=== PATIENT | male | born 1975 | race Caucasian/White ===

== ENCOUNTER 2021-01-08 13:33 | Emergency (ER) | payer MEDICARE, MEDICAID, SELFPAY ==
[2021-01-08 13:38] VITALS: BMI 39.0
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
--- NOTE | 2021-01-08 13:40 | ECG_ITS ---
Test Reason : dyspnea Blood Pressure : / mmHG Vent. Rate : 072 BPM Atrial Rate : 072 BPM P-R Int : 146 ms QRS Dur : 084 ms QT Int : 400 ms P-R-T Axes : 046 -06 -04 degrees QTc Int : 438 ms Normal sinus rhythm Minimal voltage criteria for LVH, may be normal variant ( R in aVL ) Borderline ECG When compared with ECG of 28-DEC-2018 06:24, Inverted T waves have replaced nonspecific T wave abnormality in Inferior leads Referred By: Gurvinder Izquierdo Electronically Signed By:MAGY DELONG MD
[2021-01-08] MEDS: Haloperidol Lactate 5 MG/ML VIAL 10 MG IM (13:45)
[2021-01-08] MEDS: LORazepam 2 MG/ML VIAL 4 MG IM (13:45)
[2021-01-08] MEDS: 0.9 % Sodium Chloride 1,000 ML 999 ML IVCONT ×2 (15:35)
[2021-01-08 15:59] LABS: MANUAL DIFF FLAG NO
[2021-01-08 16:08] LABS: Basophils Absolute Auto 0.1 X10*3/uL (0.0-0.2); Basophils Percent Auto 0.6 % (0-2); Eosinophils Absolute Auto 0.4 X10*3/uL (0.0-0.4); Eosinophils Percent Auto 3.7 % (0-4); Hematocrit 40.1 % (42.0-52.0); Hemoglobin 13.1 g/dl (14.0-18.0); Imm Gran Abs Auto 0.02 X10*3/uL (0.00-0.03); Imm Gran Pct Auto 0.2 % (0.0-0.4); Lymphocytes Absolute Auto 2.9 X10*3/uL (1.2-4.9); Lymphocytes Percent Auto 30.4 % (20-40); Mean Corpuscular HGB Conc 32.7 g/dl (31.0-36.0); Mean Corpuscular Hemoglobin 29.2 pg (27.0-33.0); Mean Corpuscular Volume 89.5 fL (80.0-98.0); Mean Platelet Volume 9.2 fL (9.4-12.4); Monocytes Absolute Auto 0.9 X10*3/uL (0.1-1.2); Monocytes Percent Auto 9.5 % (2-11); Neutrophils Absolute Auto 5.2 x10*3/uL (2.0-8.3); Neutrophils Percent Auto 55.6 % (45-73); Platelet Count 252 X10*3/uL (160-400); Red Blood Count 4.48 X10*6/uL (4.60-5.80); Red Cell Distribution Width 13.6 % (11.0-16.0); White Blood Count 9.4 X10*3/uL (4.8-10.8)
[2021-01-08 16:24] LABS: Ethanol < 10 mg/dL
[2021-01-08 16:28] LABS: Alanine Aminotransferase 16 U/L (0-40); Albumin Level 4.4 g/dL (3.5-5.0); Alkaline Phosphatase 99 U/L (39-117); Anion Gap 10 (12-20); Aspartate Amino Transferase 30 U/L (5-37); Bilirubin Total 0.4 mg/dL (0.0-1.0); Blood Urea Nitrogen 25 mg/dL (9-16); Calcium 9.6 mg/dL (8.4-10.2); Carbon Dioxide 28 mmol/L (22-29); Chloride 106 mmol/L (96-108); Creatinine Clr Calc Pharmacy 71.4; Estimated Glomerular Filt Rate > 60; Glucose Random 98 mg/dL (60-115); Potassium 4.3 mmol/L (3.3-5.1); Salicylate < 5.0 mg/dL (15-30); Sodium 140 mmol/L (135-145); Total Protein 6.7 g/dL (6.5-8.0); Troponin-I High Sensitivity < 3.5 ng/L (<3.5-35.0)
[2021-01-08 16:40] LABS: Acetaminophen LAB < 1 mcg/mL (<30)
[2021-01-08 16:47] VITALS: BP 121/84; PULSE 70; RESP 20; O2SAT 98
[2021-01-08 19:52] VITALS: BP 113/69; PULSE 62; RESP 18; O2SAT 98
== END 2021-01-08 21:40 | disposition home or self-care (01) ==
PROVIDERS: Emergency Provider Emergency Medicine
DX: M62.82 Rhabdomyolysis (principal); F19.10 Other psychoactive substance abuse, uncomplicated
CPT/HCPCS: 36415; 80053; 80143; 80179; 82077; 82550; 84484; 85025; 93005; 96361; 96372; 96374; 99283; 99284; J2060

== ENCOUNTER 2021-01-31 13:48 | Emergency (ER) | payer MEDICARE, MEDICAID, SELFPAY ==
[2021-01-31 13:53] VITALS: BP 149/80; PULSE 99; O2SAT 99
[2021-01-31 14:06] VITALS: BP 127/70; PULSE 82; RESP 16; O2SAT 96; BMI 34.8
[2021-01-31 14:53] LABS: Amphetamine Screen Urine Not Detected (Not Detect); Barbiturates, Urine Not Detected (Not Detect); Benzodiazepines Screen Urine Not Detected (Not Detect); Cannabinoid Screen Urine POSITIVE (Not Detect); Cocaine Screen Urine Not Detected (Not Detect); Fentanyl, urine Not Detected (Not Detect); Opiate Screen Urine Not Detected (Not Detect); Phencyclidine Screen Urine Not Detected (Not Detect)
--- NOTE | 2021-01-31 14:59 | PC.NURSE ---
patient's brother nadine francois [phone]. he wants us to know that he has filed a section 35 for this patient and is awaiting it's fulfilment. he also states that he is very worried about his brother's mental state/substance use.
--- NOTE | 2021-01-31 15:13 | ED.GENADULT ---
HPI - General Adult General Chief complaint: General Medical <FRANCESCA Salvador - Last Filed: 01/31/21 15:24> Stated complaint: SMOKED CANNABIS, SUSPECTS IT WAS LACED <FRANCESCA Salvador - Last Filed: 01/31/21 15:24> Time Seen by Provider: 01/31/21 15:13 <FRANCESCA Salvador - Last Filed: 01/31/21 15:24> Source: patient <FRANCESCA Salvador - Last Filed: 01/31/21 15:24> Mode of arrival: ambulatory <FRANCESCA Salvador Last Filed: 01/31/21 15:24> Limitations: no limitations <FRANCESCA Salvador Last Filed: 01/31/21 15:24> History of Present Illness HPI narrative: 45-year-old male with a history of drug abuse on Vivitrol, marijuana use who presents to the ER for evaluation of drug use. He lives at home with his brother who was been complaining about his loud and obnoxious behavior. His neighbors have been complaining as well. He admits to smoking marijuana. Patient reports he is here to proved to his brother that he is not using any other drugs besides marijuana. He is here for a urine toxicology. He feels fine and wants to go home. <FRANCESCA Salvador - Last Filed: 01/31/21 15:24> MD complaint: Medical clearance, urine toxicology <FRANCESCA Salvador - Last Filed: 01/31/21 15:24> Severity: mild <FRANCESCA Salvador Last Filed: 01/31/21 15:24> Relieving factors: none <FRANCESCA Salvador Last Filed: 01/31/21 15:24> Exacerbating factors: none <FRANCESCA Salvador Last Filed: 01/31/21 15:24> Associated symptoms: denies other symptoms <FRANCESCA Salvador Last Filed: 01/31/21 15:24> Treatments prior to arrival: none <FRANCESCA Salvador Last Filed: 01/31/21 15:24> Related Data Allergies/adverse reactions: Allergies Allergy/AdvReac Type Severity Reaction Status Date / Time No Known Allergies Allergy Unverified 11/09/19 16:22 <FRANCESCA Salvador - Last Filed: 01/31/21 15:24> Review of Systems Review of Systems: Constitutional: No Fever, No Chills Eyes: No Redness Cardiovascular: No Chest Pain, No SOB Gastrointestinal: No Nausea, No Vomiting Musculoskeletal: No joint pain, No Myalgias Skin: No Skin Lesions, No rash Neuro: No Weakness, No Numbness, No Dizziness, No Headache Psych: No Anxiety/Panic, No Depression <FRANCESCA Salvador - Last Filed: 01/31/21 15:24> [facility] Social History Social History: Social History Advance Directives: No Advance Directives Information Provided: Yes <FRANCESCA Salvador - Last Filed: 01/31/21 15:24> Physical Exam Vital Signs: Vital Signs: Last Vital Signs Pulse 82 01/31/21 14:06 Resp 16 01/31/21 14:06 BP 127/70 01/31/21 14:06 Pulse Ox 96 01/31/21 14:06 BMI result Body Mass Index 34.8 <FRANCESCA Salvador - Last Filed: 01/31/21 15:24> Vital Signs: Last Vital Signs Pulse 82 01/31/21 14:06 Resp 16 01/31/21 14:06 BP 127/70 01/31/21 14:06 Pulse Ox 96 01/31/21 14:06 BMI result Body Mass Index 34.8 <Andrew Amaya MD - Last Filed: 01/31/21 17:33> Appearance: Alert. Oriented X3. Agitated and will yelling that he wants to go home. HEENT: normal inspection Respiratory: No respiratory distress. Speaking in complete sentences Skin: Skin warm and dry. Normal skin color. Normal skin turgor. No rashes. Extremities: Atraumatic, normal inspection, normal range of motion. Neuro: Oriented X 3. No motor deficit. No sensory deficit. Ambulates with steady gait <FRANCESCA Salvador - Last Filed: 01/31/21 15:24> Course Course Course Narrative: 45-year-old male presenting for medical clearance. He is here offering a urine toxicology for his brother so that he can stay living in his house. His mother says he cannot stay in his house if he is using other drugs. He is on Vivitrol at baseline. His urine toxicology today is positive for marijuana only. Results were provided to the patient. At this time with stable for discharge home. <FRANCESCA Salvador - Last Filed: 01/31/21 15:24> Medical Decision Making Lab Data Labs: Lab Results 01/31/21 Range/Units 14:26 Urine Opiates Screen Not Detected (Not Detect) Urine Fentanyl Screen Not Detected (Not Detect) Ur Barbiturates Screen Not Detected (Not Detect) Ur Phencyclidine Scrn Not Detected (Not Detect) Ur Amphetamines Screen Not Detected (Not Detect) U Benzodiazepines Scrn Not Detected (Not Detect) Urine Cocaine Screen Not Detected (Not Detect) U Marijuana (THC) Screen POSITIVE H (Not Detect) <FRANCESCA Salvador - Last Filed: 01/31/21 15:24> Lab Results 01/31/21 Range/Units 14:26 Urine Opiates Screen Not Detected (Not Detect) Urine Fentanyl Screen Not Detected (Not Detect) Ur Barbiturates Screen Not Detected (Not Detect) Ur Phencyclidine Scrn Not Detected (Not Detect) Ur Amphetamines Screen Not Detected (Not Detect) U Benzodiazepines Scrn Not Detected (Not Detect) Urine Cocaine Screen Not Detected (Not Detect) U Marijuana (THC) Screen POSITIVE H (Not Detect) <Andrew Amaya MD - Last Filed: 01/31/21 17:33> Discharge Plan Discharge Clinical Impression: Marijuana use <FRANCESCA Salvador - Last Filed: 01/31/21 15:24> Patient Disposition: Home, Self-Care <FRANCESCA Salvador - Last Filed: 01/31/21 15:24> Instructions: Cannabis Abuse (ED) <FRANCESCA Salvador - Last Filed: 01/31/21 15:24> Additional Instructions: Your urine toxicology was positive for cannabinoids only. <FRANCESCA Salvador - Last Filed: 01/31/21 15:24> Interventions: ED Discharge Assessment Last Done: 01/31/21 15:24 <FRANCESCA Salvador Last Filed: 01/31/21 15:24> Discharge Date/Time: 01/31/21 15:25 <FRANCESCA Salvador - Last Filed: 01/31/21 15:24>
== END 2021-01-31 15:25 | disposition home or self-care (01) ==
LOC: HO.ED 15:17
PROVIDERS: Emergency Provider Emergency Medicine
DX: F12.10 Cannabis abuse, uncomplicated (principal); Z79.899 Other long term (current) drug therapy
CPT/HCPCS: 80307; 99284

== ENCOUNTER 2021-02-25 20:05 | Emergency (ER) | payer MEDICARE, MEDICAID, SELFPAY ==
[2021-02-25 20:15] VITALS: BP 150/80; PULSE 75; O2SAT 95
--- NOTE | 2021-02-25 20:25 | ED_ITS ---
HPI - Altered Mental Status General Stated Complaint: crisis Time Seen by Provider: 02/25/21 20:24 Source: patient and EMS Mode of arrival: EMS Limitations: no limitations History of Present Illness HPI narrative: 45-year-old male who was brought to emergency department for evaluation of altered mental status. The patient told me that he was upset that he had lost his phone and he was in the street yelling. Someone called the police on the police felt that the patient had been doing drugs and offered him transport to the hospital versus protective custody and a holding cell. The patient states that he does smoke marijuana and heroin daily but did not use any this evening. He states that he last used at 9:00 a.m. this morning. He states that he usually smokes marijuana mixed with heroin 2 to 3 times a day. He states that recently he was in a [address] for 56 days and got out on December 03, 2020. He states that he stayed sober for approximately 1 month but then lost his housing and since then has been using drugs again. He states that occasionally he smokes crack cocaine as well. He does not want to get into a detox program today. He does not want to talk to 1 of our recovery operator is. He denies being suicidal or homicidal. He does not want any testing today in the emergency department. He is oriented to person and place and answers all questions appropriately therefore he is competent to refuse care. Related Data Allergies Allergy/AdvReac Type Severity Reaction Status Date / Time No Known Allergies Allergy Unverified 11/09/19 16:22 Review of Systems Review of Systems: Yes all other systems are reviewed and are negative [facility] Past Medical History [facility] Narrative: Past medical history: Polysubstance abuse. Social history: He states that he is homeless but he is going to get housing today. He does smoke cigarettes. He denies alcohol use. He smokes marijuana mixed with heroin. He smokes crack cocaine. Social History Social History Advance Directives: No Advance Directives Information Provided: No Physical Exam Const: General: cooperative and no acute distress Orientation/consciousness: oriented to person and oriented to place Limitations: no limitations HENMT: Head: Yes normal to inspection, Yes normocephalic and Yes atraumatic Ears: external ears normal General nose exam: Normal external nose present Face and sinus: Yes normal facial exam Mouth: Normal oral and palatal mucosa present Throat: Yes posterior oropharynx normal Eyes: General: appearance normal, both eyes and all related structures Pupils: Equal, round and reactive pupils present Neck: Neck: Yes normal visual inspection, Yes no lymphadenopathy, Yes trachea midline and Yes supple Chest: Chest palpation & inspection: normal inspection of the chest and normal palpation of entire chest wall Resp: Effort & Inspection: normal respiratory effort and able to speak in complete sentences Auscultation: clear to auscultation bilaterally Cardio: Rate: regular rate Rhythm: regular rhythm Heart sounds: S1 normal heart sound present, S2 normal heart sound present and no murmurs GI: Inspection: Yes normal to inspection Palpation (GI): Soft to palpation, nontender and no guarding Auscultation: normal bowel sounds : General: Yes no CVA tenderness Back/Spine/Pelvis: Back: no CVA tenderness Skin: Other: Small, nonbleeding skin abrasion to his left 1st webspace between his thumb and index finger. General skin exam: no rashes or lesions noted Neuro: General: oriented to person and oriented to place Cranial nerves: Yes CN's II-XII intact bilaterally and Yes Equal, round and reactive pupils present Cognition (Neuro): normal cognition Motor exam (neuro): 5/5 motor strength present throughout Extrem: General: Yes normal to inspection Psych: Appearance: grossly normal Speech and movement: Normal speech and movement present Affect: normal affect Attitude: cooperative Thought process: Normal thought process present Thought content: Normal thought content present Course Course Course Narrative: 45-year-old male who was sent to emergency department by police for evaluation of altered mental status. The patient apparently was yelling in the street but he told me that he was upset about losing his phone and he was not intoxicated. He does admit to using marijuana, heroin and crack cocaine but has not used since early this morning. Denies alcohol use. At the time my evaluation the patient is oriented to person and place, he answers all questions appropriately, he denies being suicidal or homicidal. Therefore, I believe that the patient is competent to refuse care. I did offer him counseling from our care team and from our recovery operator however he refused this at this time and states that he is not interested in getting into detox and he is going to continue to use drugs. I offered to send him home with intranasal Narcan however he states that he has to have these at home and he does not want 1 at this time. The patient will be discharged home. Discharge Plan Discharge Clinical Impression: Polysubstance (excluding opioids) dependence, daily use, Heroin use, Marijuana use, Cocaine use, Abrasion Patient Disposition: Home, Self-Care Instructions: Narcotic Use Disorder (ED) Additional Instructions: At this time, you do not appear to be intoxicated from alcohol or any other drugs. I offered to have our recovery operator and our care team crisis counselor help treat you for your drug use however you refused. I also offered to give you intranasal Narcan in order to help you safely use narcotics in the future however you state that you have 2 doses of this medication at home and do not want 1 to go home with at this time. It is very dangerous to use narcotics since most of the narcotics on the street are fentanyl and even smoking a small dose of fentanyl can cause you to stop breathing and . If you change your mind and want to get help with your drug use, please return to the emergency department and we can have our recovery operator and care team counselor see you.
[2021-02-25 20:46] VITALS: BP 126/68; PULSE 76; RESP 18; TEMP 36.8; O2SAT 98; BMI 28.7
[2021-02-25] MEDS: Bacitracin Oint 0.9 GM PACKET 1 APPL TOPICAL (20:49)
--- NOTE | 2021-02-25 21:09 | PC.NURSE ---
pt. ambulatory upon discharge. Alert and oriented and following commands. Was complaining about bilateral big toe pain. Pts toes are white but with positive sensation and cms.
== END 2021-02-25 21:11 | disposition home or self-care (01) ==
PROVIDERS: Emergency Provider Emergency Medicine Emergency Medical Services
DX: F19.20 Other psychoactive substance dependence, uncomplicated (principal); F14.20 Cocaine dependence, uncomplicated; F12.20 Cannabis dependence, uncomplicated; F11.20 Opioid dependence, uncomplicated; S60.512A Abrasion of left hand, initial encounter; X58.XXXA Exposure to other specified factors, initial encounter; Y93.9 Activity, unspecified; Y92.9 Unspecified place or not applicable; Y99.9 Unspecified external cause status
CPT/HCPCS: 99283

== ENCOUNTER 2023-04-25 16:31 | Emergency (ER) | payer MEDICARE, MEDICAID, SELFPAY ==
[2023-04-25 16:45] VITALS: BP 132/87; BP 140/92; PULSE 87; PULSE 88; RESP 16; TEMP 36.5; O2SAT 95; O2SAT 98; BMI 35.8
--- NOTE | 2023-04-25 17:02 | ED.GENADULT ---
HPI - General Adult General Chief complaint: ETOH/Substance Use Stated complaint: PT TOOK SOMETHING PER PD. DILATED PUPILS,SWEATY Time Seen by Provider: 04/25/23 16:39 Source: patient Mode of arrival: ambulatory Limitations: no limitations History of Present Illness HPI narrative: 47-year-old male with history of substance abuse on methadone presents to ED for acting bizzare after smoking weed. Patient took his methadone today. patient states his brother bought weed from some source, but does not know where. patient states presently he wants to eat food. patient denies any homicidla/suicidal ideation. presently patient is not acting irrationaly. Related Data Allergies Allergy/AdvReac Type Severity Reaction Status Date / Time No Known Allergies Allergy Unverified 11/09/19 16:22 Review of Systems Review of Systems: smoked weed. acting bizarre. Yes all other systems are reviewed and are negative [facility] Social History Social History Smoked in Last 30 Days: Yes Use of substances other than those prescribed or required for medical reasons: Yes Substance Use Type: Marijuana Substance Use Frequency: Daily Last Used Substance: Just Prior to Admission Any prior treatment program specific to substance use: No Advance Directives: No Advance Directives Information Provided: No Physical Exam ED Vital Signs: Vital Signs - 24 hr 04/25/23 16:45 Temperature 97.7 F Pulse Rate 87 Respiratory Rate 16 Blood Pressure 132/87 Pulse Oximetry 95 Oxygen Delivery Method Room Air BMI result Body Mass Index 35.8 Const Other: patient is not acting bizzare. patient falling asleep and than wakes up to talk. General: comfortable, no acute distress, well developed and alert Orientation/consciousness: oriented to person, oriented to place, oriented to time and patient oriented x3 HENMT Head: Yes normal to inspection, Yes No palpable skull fracture present, Yes normocephalic, Yes atraumatic, No abrasion, No Acrocyanosis present, No Chung's sign, No contusion, No cranial bruits, No hematoma, No laceration, No occipital foramen tenderness, No palpable skull fracture, No raccoon eyes, No scalp lesion, No scalp tenderness and No Temporal artery tenderness present Ears: hearing grossly normal bilaterally, external ears normal, TM's normal bilaterally, TM normal on the right, TM normal on the left, EAC's normal, mastoids normal and no periauricular adenopathy Eyes Other: pupils are constricted. Neck Neck: Yes normal visual inspection, Yes full ROM, Yes no lymphadenopathy, Yes no meningeal signs, Yes trachea midline, Yes supple, No anterior neck swelling and No tender Chest Chest palpation & inspection: normal inspection of the chest and normal palpation of entire chest wall Resp Effort & Inspection: normal respiratory effort and able to speak in complete sentences Auscultation: clear to auscultation bilaterally Cardio Jugular venous distension: no JVD Heart sounds: S1 normal heart sound present and S2 normal heart sound present GI Inspection: Yes normal to inspection Palpation (GI): Soft to palpation, not firm, nontender, no guarding and not rigid General: No CVA tenderness and Yes no CVA tenderness Back/Spine/Pelvis Back: no CVA tenderness, No CVA tenderness and No back tenderness Skin General skin exam: no rashes or lesions noted and elasticity normal Neuro Other: PATIENT FALLING ASLEEP AND THAN WAKING UP TO TALK LIKE HE IS ON AN OPOIDS. General: oriented to person, oriented to place, oriented to time, patient oriented x3, gait normal, tone normal, moves all extremities, Normal light touch and pain sensation, no meningeal signs, no focal motor deficits, CN's II-XI intact bilaterally and normal sensation to monofilament Extrem General: Yes normal to inspection, Yes full ROM and Yes capillary refill normal Psych Appearance: grossly normal, well kempt and not disheveled Medical Decision Making Medical Decision Making MDM Narrative: 47-YEAR-OLD MALE PRESENTS TO ED FOR ACTING BIZARRE SMOKING WEED. EMS DENIES ANY TRAUMA. PATIENT TOOK HIS METHADONE TODAY. WHOLE-BODY EVALUATED NEGATIVE FOR SIGNS OF TRAUMA. PUPILS CONSTRICTED. PATIENT IS FALLING ASLEEP AND THEN TALKING. CLINICAL PRESENTATION MOST LIKELY OPIOID or PCP. PATIENT IS RETCHING WAS OFFERED ZOFRAN BUT REFUSED. PATIENT DOES NOT ANY medical intervention WANTS FOOD. VITAL SIGNS ARE STABLE. WE WILL WATCH AND RE-EVALUATE PATIENT. stanley ORDERED. 5:36PM: PATIENT IS ALERT ORIENTED X3. PATIENT DOES want ANY MEDICAL INTERVENTION. PATIENT REQUESTING TO DRINK DEE FRANSISCO. VITAL SIGN MONITOR STABLE. PATIENT WILL BE CONTINUOUSLY MONITORED. Patient is eating food. 6:13pm: Patient left the ED without my knowldge. Went outside and saw and spoke to patient. patient was A0x3 and did not want to return to the ED. patient explained risk of and worsening symptoms but still does not want to return to the ED. he states he felt better and did not want any medical intervenion. Patient did not return to the ED> Differential Diagnosis Differential Diagnoses: The differential diagnosis associated with the presentation includes (substance abuse, laced weed) Admission/Observation Consideration of admission/observation: Escalation of care including admission/observation considered Independent Historian Clinical information obtained from an independent historian. History obtained from or confirmed by: EMS and Other (Nurse and patient) External Record Review External record reviewed: Other (prior visits) Social Determinants Patient?s care significantly limited by Social Determinants of Health including: Other Social Determinant of Health (Subtance abuse) Discharge Plan Discharge Clinical Impression: Polysubstance abuse Patient Disposition: Left Against Medical Advice Discharge Date/Time: 04/25/23 18:20
--- NOTE | 2023-04-25 17:23 | PC.NURSE ---
patient refusing zofran even though dry heaving. PA aware. pupils and dilated and constricted. will monitor vitals
== END 2023-04-25 18:20 | disposition left against medical advice (07) ==
PROVIDERS: Emergency Provider Internal Medicine
DX: F12.121 Cannabis abuse with intoxication delirium (principal); F15.121 Other stimulant abuse with intoxication delirium
CPT/HCPCS: 99281; 99283

== ENCOUNTER 2023-10-04 16:23 | Emergency (ER) | payer MEDICARE, MEDICAID, SELFPAY ==
[2023-10-04 16:35] VITALS: BP 156/62; PULSE 74; O2SAT 95
--- NOTE | 2023-10-04 16:36 | PC.NURSE ---
pt was on EMS gerney waiting for a bed in the ED. Was collared and removed it. Became impatient, was exit seeking, made it to ems door and both wiating room doors. was ambulatory with brisk gait, stead on feet, skin pwd. no abrasions noted on scalp. EMS state he fell from stating. pt states he had beens smoking pot. No blood thinnger. no LOC. signed AMA form
--- NOTE | 2023-10-04 16:55 | PC.NURSE ---
pt just walked back through the ed with a bag of food from the caf. stated to transporter that he's going to assist a friend in wr. strong steady gait. previously denied SI/HI
== END 2023-10-04 16:57 | disposition left against medical advice (07) ==
PROVIDERS: Emergency Provider Emergency Medicine
DX: R51.9 Headache, unspecified (principal)

== ENCOUNTER 2024-04-13 09:21 | Outpatient (REF) | payer MEDICARE, MEDICAID, SELFPAY ==
[2024-04-13 09:50] LABS: MANUAL DIFF FLAG NO
--- OUTSIDE RECORDS SUMMARY | 2024-04-13 10:05 | XMS_ITS | Clinical Summary ---
Author Organization [facility] Address [address] [place] [address] Care Team Providers Care Addiction Specialist Name Role Phone Gillian Martínez PAPER STEAMER Primary Care Provider [phone] Source Comments PLEASE NOTE, if this patient is a minor, it may be UNLAWFUL to discuss sensitive information that is contained in these records (such as FAMILY PLANNING, MENTAL HEALTH or SUBSTANCE ABUSE) with the minor patient's parent or other person without the patient's specific authorization.[facility] Allergies No known active allergies Medications QUEtiapine (SEROQUEL) 300 mg tabletIndicatio ns:Major depressive disorder in full remission, unspecified whether recurrent (HCC-CMS) Take 300 mg by mouth nightly at bedtime 9 Active QUEtiapine (SEROQUEL) 100 mg tabletIndicatio ns:Major depressive disorder in full remission, unspecified whether recurrent (HCC-CMS) Take 100 mg by mouth 2 (two) times daily 9 Active methocarbamoL (ROBAXIN) 500 mg tabletIndicatio ns:Cervical paraspinal muscle spasm Take 1 Tablet by mouth 3 (three) times daily 15 Tablet 2 Active ibuprofen 400 mg tabletIndicatio ns:Cervical paraspinal muscle spasm Take 1 Tablet by mouth 3 (three) times daily as needed for pain 30 Tablet 2 Active mirtazapine 7.5 mg tab TAKE 1 TABLET BY MOUTH EVERY DAY AT BEDTIME NEEDED 2 Active hydrOXYzine pamoate (VISTARIL) 50 mg capsule 3 Active QUEtiapine (SEROQUEL) 200 mg tablet 3 Active valACYclovir (VALTREX) 1 gram tabletIndicatio ns:HSV infection TAKE 1 TABLET BY MOUTH DAILY BLUE COLORED ONLY 20 Tablet 1 5 Active valACYclovir (VALTREX) 1 gram tabletIndicatio ns:HSV infection TAKE 1 TABLET BY MOUTH DAILY BLUE COLORED ONLY 20 Tablet 1 4 025 Discontinued Active Problems Problem Noted Date Diagnosed Date Severe episode of recurrent major depressive disorder, without psychotic features ([facility]) 07/09/2021 Opioid abuse ([facility]) 02/23/2019 Overview (07/09/2021): Is doing methadone for opioids.Gianfrancoanibal Chronic hepatitis C without hepatic coma (HCC-CM S) 01/22/2018 Overview (04/24/2018): Genotype 1b 03/03/18 - Evaluated by ID at [facility] [place]. Plan: Abdominal U/S, Will submit for mavyret x 8 wks. F/U 2 mos. History of incarceration 01/20/2018 Overview (01/23/2018): Incarcerated for 5 years [id number] and several times before that HSV infection 01/20/2018 Resolved Problems Problem Noted Date Diagnosed Date Resolved Date Numbness and tingling in both hands 02/23/2019 07/09/2021 Chest pain - normal stress ECHO 09/26/18 12/17/2018 07/09/2021 Overview (12/17/2018): 09/26/18 - Stress ECHO: normal resting LVF. LVEF: 60-65%, w/ no region wall abnormalities. No exercise induced ischemia. Subclinical hyperthyroidism 08/30/2018 07/29/2021 Subclinical hypothyroidism 01/22/2018 0 08/30/2018 Prediabetes 01/22/2018 07/29/2021 Immunizations Name Administration Dates Next Due Flu, Cell Culture based, Mul ti Dose, 6m+, Flucelvax 12/24/2016 Flu, Preservative Free 01/19/2023,02/23/2019, INFLUENZA, SEASONAL, INJECTABLE 12/18/19 16,12/16/2012,01/29/2012,03/06 Influenza (FLUAD), Trivalent , Adjuvanted 12/11/2014 MMR (MMR II/Priorix) 12/18/2011 PNEUMOCOCCAL CONJUGATE PCV 2 0 (Prevnar) 01/19/2023 PNEUMOCOCCAL POLYSACCHARIDE PPV23 07/09/2021 TDAP 07/09/2021,03/06/2011 Td(adult),2 Lf tetanus toxoid,preservative free 07/03/2014 Family History Medical History Relation Name Comments Asthma Mother Relation Name Status Comments Mother Alive Social History Tobacco Use Types Packs/Day Years Used Date Smoking Tobacco: Every Day Cigarettes 0.5 29.9 Started: 1989; Last attempted to quit: 01/05/2019 Smokeless Tobacco: Never Tobacco Cessation:Ready to Q uit: Not Asked; Counseling Given: Not Answered Comments:10 a day Alcohol Use Standard Drinks/Week Comments No 0 (1 standard drink = 0.6 oz pur e alcohol) Social Connections Answer Date Recorded Connectedness 0 01/19/2023 Financial Resource Strain Answer Date R ecorded Financial Resource Strain 0 2022 Stress Answer Date Recorded Stress 0 01/19/2023 Physical Activity Answer Date Recorded Physical Activity 0 10/17/2018 Food Insecurity Answer Date Recorded Food 0 01/19/2023 Transportation Needs Answer Date Record ed Transportation 0 01/19/2023 Housing Stability Answer Date Recorded Housing 0 01/19/2023 Safety and Environment Answer Date Soham rded Safety 0 01/19/2023 Utilities Answer Date Recorded Utilities 0 01/19/2023 Employment Answer Date Recorded Employment 0 10/17/2018 Sex and Gender Information Value Date Recorded Sex Assigned at Male 01/20/2018 11:07 AM PST Legal Sex Male 7:02 AM PDT Gender Identity Male 01/20/2018 11:07 AM PST Sexual Orientation Straight 01/20/2018 11 :07 AM PST Occupation Industry Job Start Date Job End Date [employer] Not on file Not on file Not on file Last Filed Vital Signs Vital Sign Reading Time Taken Comments Blood Pressure 120/82 01/19/2023 10:56 AM EST Pulse 75 01/19/2023 10:56 AM EST Temperature 36.4 ??C (97.5 ??F) 01/19/2023 10:[address] Respiratory Rate 20 01/19/2023 10:56 AM EST Oxygen Saturation 97% 01/19/2023 10:56 AM EST Inhaled Oxygen Concentration - - Weight 97 kg (213 lb 12.8 oz) 01/19/2023 10:56 A M EST Height 165.1 cm (5' 5 ) 01/19/2023 10:56 AM EST Body Mass Index 35.58 01/19/2023 10:56 AM EST Plan of Treatment Health Maintenance Due Date Last Done Comments Lipid Screening 07/09/2022 07/09/2021, 02/23/2019 Tobacco Screening 07/09/2022 07/09/2021 CT Colonography 2022 Colonoscopy 2022 Colorectal Cancer Screening 2022 FIT/gFOBT 2022 Fecal DNA 2022 Flexible Sigmoidoscopy 2022 Depression Monitoring 04/21/2023 01/19/2023 , 09/16/2022, 07/09/2021 Tobacco Cessation Counseling (#1) 07/17/2023 022 [id number] ( season) 2023 04/04/2021, 08/22/2020, 08/01/2020 Imm-Influenza (#1) 2023 01/19/2023, 0 02/23/2019, 01/20/2018, Additional history exists Hypertension Screening (#1) 01/19/2024 Diabetes Screening 01/20/2024 01/19/2023, 1 03/21/2022, 07/09/2021, Additional history exists Medicare Annual Wellness Visit 01/20/2024 01/19/2023 Alcohol and Drug Screen 02/23/2024 09/17/19 23, 07/09/2021, 04/04/2018, Additional history exists Imm-DTaP/Tdap/Td (4 - Td or Tdap) 07/10/2031 07/09/2021, 07/03/2014, 03/06/2011 Imm-Pneumococcal Completed 01/19/2023, 07/09/2021 HIV Screening Completed 09/09/2023, 01/19/2023 Imm-Hepatitis A Discontinued Imm-Hepatitis B Discontinued Procedures Procedure Name Priority Date/Time Associated Diagnosis Comments HIV 1/2 AG & AB W/RFLX (4TH GEN) Routine 09/09/2023 11:08 AM EDT Penile discharge COMPREHENSIVE METABOLIC PANEL Routine 01/19/2023 11:52 AM EST Chronic hepatitis C without hepatic coma (HCC-CMS) LIPIDS W RFLX TO DIRECT LDL Routine 07/09/2021 10:16 AM EDT Prediabetes Subclinical hyperthyroidism from Last 3 Months or Most Recently Relevant to Health Maintenance Results * HIV 1/2 AG & AB W/RFLX (4TH GEN) (09/09/2023 11:08 AM EDT) HIV AG/AB, 4TH GEN NON-REAC TIVE NON-REAC TIVE [facility] [facility] Comment: HIV-1 antigen and HIV-1/HIV-2 antibodies were not detected. There is no laboratory evidence of HIV infection. PLEASE NOTE: This information has been disclosed to you from records whose confidentiality may be protected by state law. ??If your state requires such protection, then the state law prohibits you from making any further disclosure of the information without the specific written consent of the person to whom it pertains, or as otherwise permitted by law. A general authorization for the release of medical or other information is NOT sufficient for this purpose. ?? For additional information please refer to http://education.[employer]/faq/NMX395 (This link is being provided for informational/ educational purposes only.) The performance of this assay has not been clinically validated in patients less than 2 years old. Blood Blood / Unknown 09/09/2023 1 1:08 AM EDT 09/09/2023 11:08 AM EDT Narrative [facility] - 09/10/2023 5:54 PM EDT FASTING:NO Mel Fuentes SENIOR CLERK-C LAB - BLOOD DRAW Final Re sult [facility] [address] [place] [id number], [facility] [address] [address] * (ABNORMAL) COMPREHENSIVE METABOLIC PANEL (01/19/2023 11:52 AM EST) Pathologist [facility] GLUCOSE 63(L) 65 - 139 mg/dL [facility] Comment: ?Non-fasting reference interval UREA NITROGEN (BUN) 21 7 - 25 mg/dL [facility] CREATININE (blood) 0.79 0.60 - 1.29 mg/dL [facility] EGFR 112 > OR = 60 mL/min/1. 73m2 [facility] BUN/CREATININE RATIO SEE NOTE: [facility] Comment: ?? Not Reported: BUN and Creatinine are within ?? reference range. ? SODIUM 144 135 - 146 mmol/L [facility] POTASSIUM 4.0 3.5 - 5.3 mmol/L [facility] CHLORIDE 107 98 - 110 mmol/L [facility] CARBON DIOXIDE 29 20 - 32 mmol/L [facility] CALCIUM 9.4 8.6 - 10.3 mg/dL [facility] PROTEIN, TOTAL 6.8 6.1 - 8.1 g/dL [facility] ALBUMIN 4.5 3.6 - 5.1 g/dL [facility] GLOBULIN 2.3 1.9 - 3.7 g/dL (calc) [facility] ALBUMIN/GLOBULI N RATIO 2.0 1.0 - 2.5 (calc) [facility] BILIRUBIN, TOTAL 0.4 0.2 - 1.2 mg/dL [facility] ALKALINE PHOSPHATASE 74 36 - 130 U/L [facility] AST 15 10 - 40 U/L [facility] ALT 15 9 - 46 U/L [facility] Blood Blood / Unknown 01/19/2023 1 1:52 AM EST 01/19/2023 11:52 AM EST Narrative [facility] - 01/22/2023 9:20 PM EST FASTING:NO COLLECTION KIT GIVEN TO PATIENT. PATIENT ADVISED TO RETURN. [facility] [place] LAB - BLOOD DRAW Edited Result - Final [facility] [address] [address], [facility] [address] [place] [address] * LIPIDS W RFLX TO DIRECT LDL (07/09/2021 10:16 AM EDT) LDL-CHOLESTEROL 97 99 mg/dL (calc) [facility] Comment: Reference range: <100 Desirable range <100 mg/dL for primary prevention; ?? <70 mg/dL for patients with CHD or diabetic patients with > or = 2 CHD risk factors. LDL-C is now calculated using the Rafa calculation, which is a validated novel method providing better accuracy than the Friedewald equation in the estimation of LDL-C. Harjinder SS et al. ASHLYN. 2013;310(19): 5204-9797 (http://education.[employer]/faq/RCL963) CHOL/HDLC RATIO 3.6 <5.0 (calc) [facility] NON-HDL CHOLESTEROL 114 <130 mg/dL (calc) [facility] Comment: For patients with diabetes plus 1 major ASCVD risk factor, treating to a non-HDL-C goal of <100 mg/dL (LDL-C of <70 mg/dL) is considered a therapeutic option. CHOLESTEROL, TOTAL 158 <200 mg/dL [facility] HDL CHOLESTEROL 44 > OR = 40 mg/dL [facility] TRIGLYCERIDES 83 <150 mg/dL [facility] Blood Blood / Unknown 07/09/2021 1 0:16 AM EDT 07/09/2021 10:17 AM EDT Narrative [facility] - 07/16/2021 11:20 AM EDT FASTING:YES Melida Shah SENIOR CLERK-C LAB - BLOOD DRAW Final Resul t [facility] [address] [address], [facility] [address] [address] from Last 3 Months or Most Recently Relevant to Health Maintenance Insurance [place] MEDICAID Member Subscriber Plan / Payer (Ef fective 2017-Present) Name:David Ceja Relation to Subscriber:Self Name:David Ceja Payer ID:[id number] Group ID:Not on file Type:Medicaid Address: [address] [place] [id number] MEDICARE - [place] Care Teams Addiction Specialist Relationship Specialty Start Date End Date Gillian Martínez NP [address] [place] [address] PCP - General Internal Medicine 03/18/23
--- OUTSIDE RECORDS SUMMARY | 2024-04-13 10:05 | XMS_ITS | Continuity of Care Document ---
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 Name Role Phone Unavailable Unavailable Unavailable Allergies, Adverse Reactions, Alerts Substance Reaction Status Criticality No Known allergies Medications Medication Instructions Dosage Effective Dates (start - stop) Status Comments Seroquel 300 mg Tab take 2 tablet (600MG ) by oral route every day 600 MG - Active Valtrex 500 mg Tab 1po bid prn herpes flare x 5days - Active Wellbutrin XL 300 mg 24 hr Tab take 1 tablet (300MG) by oral route every day 300 MG - Active Vitamin D 50,000 unit Cap 1 tab weekly x 8 weeks - Active ibuprofen 400 mg Tab 1 THREE TIMES DAILY WITH MEALS DIRECTED NEEDED - Active bacitracin 500 unit/g Topical Packet apply BID to affected area for 14 days - Active Keflex 500 mg Cap 1 Four Times A Day P O for 10 days - Active Procedures Procedure Date 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 PSYTX, OFF, 45-50 MIN MEDICATION MANAGEMENT MEDICATION MANAGEMENT Advance Directives Directive Yes / No Effective Date File Name No Information Encounters Encounter Description Practice Location Reason(s) For Visit Diagnoses Date Provider Providers Copied on Encounter [facility], [address] [place] [address],[address], [place], [place], [id number], [place] tel:[phone] [facility] No Information 2 No Information [facility], [address], [place], [place], [id number], [place] tel:[phone] [facility] No Information 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 . [facility], [address], [place], [place], [id number], [place] tel:[phone] [facility] behavior disorder (chief complaint) depression (chief complaint) No Information 2 No Information [facility], [address], [place], [place], [id number], [place] tel:[phone] [facility] No Information 2 No Information [facility], [address], [place], [place], [id number], [place] tel:[phone] [facility] No Information 2 No Information [facility], [address], [place], [place], [id number], [place] tel:[phone] [facility] behavior disorder (chief complaint) Major depressive affective disorder, recurrent episode, severe degree, specified as with psychotic behavior 2 No Information [facility], [address], [place], [place], [id number], [place] tel:[phone] [facility] behavior disorder (chief complaint) Major depressive affective disorder, recurrent episode, severe degree, specified as with psychotic behavior 2 No Information [facility], [address], [place], [place], [id number], [place] tel:[phone] [facility] Opioid type dependence, continuous use 2 No Information [facility], [address], [place], [place], [id number], [place] tel:[phone] [facility] Major depressive affective disorder, recurrent episode, severe degree, specified as with psychotic behaviorPostt raumatic stress disorder 2 No Information [facility], [address], [place], [place], [id number], [place] tel:[phone] [facility] Unspecified drug dependence, unspecified useCellulitis and abscess of upper arm and forearm 2 No Information [facility], [address] [facility],[address], [place], [place], [id number], [place] tel:[phone] Converted Locations No Information 2 No Information [facility], [address] [facility],[address], [place], [place], [id number], [place] tel:[phone] [facility] Unspecified vitamin d deficiency 2 No Information [facility], [address] [facility], [place], [place], [id number], [place] tel:[phone] [facility] Other disorders of muscle, ligament, and fascia 2 No Information [facility], [address] [facility] [facility] [address], [place], [place], [id number], [place] tel:[phone] Converted Locations No Information 2 No Information [facility], [address], [place], [place], [id number], [place] tel:[phone] [facility] NEED FOR PROPHYLACTIC VACCINATION AND INOCULATION, INFLUENZANEED FOR PROPHYLACTIC VACCINATION WITH COMBINED DIPHTHERIA-TE TANUS-PERTUSS IS (DTP) (DTAP) VACCINERoutin e general medical examination at a health care facility 2 No Information [facility], [address] [facility],[address], [place], [place], [id number], [place] tel:[phone] [facility] Cellulitis and abscess of foot, except toes 1 Mendez Reese. [address] [place], [place], [id number]. tel:[phone] [facility], [address], [place], [place], [id number], tel:[phone] [facility] Other general medical examination for administrativ e purposes 1 Z-Converted Provider. . [facility], [address], [place], [place], [id number], [place] tel:[phone] Converted Locations No Information 1 Mendez Reese. [address], [place], [id number]. tel:[phone] [facility], [address], [place], [place], [id number], tel:[phone] [facility] Depressive disorder, not elsewhere classified 1 No Information Family History Family Member Type Diagnosis Age At Onset FH - ILLNESSES (GENE Problem (finding) no cancer FH - ILLNESSES (GENE Problem (finding) no heart diseas e FH - MOTHER (DDMS) Problem (finding) hypertension FH - ILLNESSES (GENE Problem (finding) no hypercholest erolemia FH - ILLNESSES (GENE Problem (finding) no hypertension FH - ILLNESSES (GENE Problem (finding) no diabetes FH - MOTHER (DDMS) Problem (finding) asthma Immunizations Vaccine Date Status Comments INFLUENZA VACCINE AGE 3 AND ABOVE administered Source: New Immuniza tion Record TDAP administered Source: New Imm unization Record Payers Payer name Insurance type Covered republican ID Authoriza tion(s) No Information Social History Type Description Quantity Date Captured Comments Sex Male Smoking Status No Information Chief Complaint And Reason For Visit No Information Reason For Referral Reason For Referral No Information Plan Of Treatment Date Type Action Status Goal Unhealthy drug use screening . Due on due Goal Document SOGI Information. D ue on due Goal Lipid Panel. Due on 012 due Goal Hemoglobin A1C. Due on due Goal ELECTROCARDIOGRAM, COMPLETE. Due on due Goal APE. Due on due Goal Influenza vaccine. Due on due Goal Tdap. Due on due History Of Present Illness Encounter Date Complaint History Of Prese nt Illness No Information Functional Status Date Functional Assessmen t No Information Instructions Date Instruction Additional Infor mation No Information Assessments Type Assessment Date No Information Patient Care Teams Name Effective Dates (start - stop) Status Members No Information
[2024-04-13 10:06] LABS: Basophils Absolute Auto 0.1 X10*3/uL (0.0-0.2); Basophils Percent Auto 0.8 % (0-2); Eosinophils Absolute Auto 0.2 X10*3/uL (0.0-0.4); Eosinophils Percent Auto 3.4 % (0-4); Hematocrit 39.9 % (42.0-52.0); Hemoglobin 13.8 g/dl (14.0-18.0); Imm Gran Abs Auto 0.01 X10*3/uL (0.00-0.03); Imm Gran Pct Auto 0.2 % (0.0-0.4); Lymphocytes Absolute Auto 2.4 X10*3/uL (1.2-4.9); Lymphocytes Percent Auto 40.1 % (20-40); Mean Corpuscular HGB Conc 34.6 g/dl (31.0-36.0); Mean Corpuscular Hemoglobin 30.8 pg (27.0-33.0); Mean Corpuscular Volume 89.1 fL (80.0-98.0); Mean Platelet Volume 9.4 fL (9.4-12.4); Monocytes Absolute Auto 0.5 X10*3/uL (0.1-1.2); Monocytes Percent Auto 8.4 % (2-11); Neutrophils Absolute Auto 2.8 x10*3/uL (2.0-8.3); Neutrophils Percent Auto 47.1 % (45-73); Platelet Count 224 X10*3/uL (160-400); Red Blood Count 4.48 X10*6/uL (4.60-5.80); Red Cell Distribution Width 12.6 % (11.0-16.0); White Blood Count 5.9 X10*3/uL (4.8-10.8)
[2024-04-13 10:08] LABS: Estimated Average Glucose 114 mg/dL; Hemoglobin A1C 134.8938 umol/L; Hemoglobin A1c % 5.6 % (<6.0)
[2024-04-13 10:32] LABS: Alanine Aminotransferase 28 U/L (0-40); Albumin Level 4.4 g/dL (3.5-5.0); Alkaline Phosphatase 78 U/L (39-117); Anion Gap 10 (12-20); Aspartate Amino Transferase 30 U/L (5-37); Bilirubin Total 0.5 mg/dL (0.0-1.0); Blood Urea Nitrogen 14 mg/dL (9-16); Calcium 9.1 mg/dL (8.4-10.2); Carbon Dioxide 28 mmol/L (22-29); Chloride 106 mmol/L (96-108); Cholesterol 158 mg/dL (<200); Estimated Glomerular Filt Rate > 60; Glucose Fasting 95 mg/dL (60-99); HDL Cholesterol 44 mg/dL (>40); LDL Cholesterol Calculated 100 mg/dL (<100); Potassium 4.2 mmol/L (3.3-5.1); Sodium 140 mmol/L (135-145); Total Protein 7.4 g/dL (6.5-8.0); Triglycerides 70 mg/dL (<150)
== END 2024-04-13 09:22 | disposition home or self-care (01) ==
LOC: HO.LAB 09:21
PROVIDERS: Visit Provider Nurse Practitioner Psychiatric/Mental Health
DX: Z79.899 Other long term (current) drug therapy (principal)
CPT/HCPCS: 36415; 80053; 80061; 83036; 85025